=== PATIENT | female | born 1960 | race Caucasian/White ===

== ENCOUNTER 2016-07-28 21:28 | Emergency (ER) | payer OTHER ==
[~2016-07-28] VITALS: Ht 165.1 cm; Wt 108.0 kg
[2016-07-28 21:37] VITALS: BP 148/67; PULSE 90; RESP 18; TEMP 98.9; O2SAT 99
[2016-07-28] MEDS ORDERED: ONDANSETRON ODT 4 MG TAB PO ONE (21:45)
[2016-07-28] MEDS ORDERED: ACETAMINOPHEN/HYDROcodone 325 MG/5 MG TAB PO ONE (21:45)
--- NOTE | 2016-07-28 21:48 | PD ---
HPI Chief Complaint: Fall Time Seen by Provider: 21:35 Travel History International Travel<30 days: No Contact w/Intl Traveler<30days: No Traveled to known affect area: No History of Present Illness HPI This is a 55-year-old female who presents via EMS for evaluation of left ankle injury. Prior to arrival the patient was playing hockey when she twisted her left leg and fell. She now is complaining of pain in the left ankle region. Pain is an aching pain is constant and worse with movement. She has been unable to ambulate since the injury. She denies any pain or injury to the head , neck, back, torso, upper extremities, right leg, left proximal leg. No numbness or tingling. She has no other complaints at this time. She is currently visiting [facility] from [place]. [facility] Past Medical History High Cholesterol: Yes ?: Not Past Surgical History Surgical History: No Previous Surgery Social History Alcohol Use: No Tobacco Use: No Substance Use: No Allergies-Medications (Allergen,Severity, Reaction): Coded Allergies: Codeine (Verified Allergy, Unknown, 07/28/16) Phenergan (Verified Allergy, Unknown, 07/28/16) Reported Meds & Prescriptions Reported Meds & Active Scripts Active Zofran (Ondansetron HCl) 4 Mg Tab 4 Mg PO Q6HR PRN Lortab (Hydrocodone-Acetaminophen) 5-325 Mg Tab 1 Tab PO Q6H PRN Review of Systems Except as stated in HPI: all other systems reviewed are Neg Physical Exam Narrative GENERAL: Well-developed well-nourished female in no acute distress SKIN: Warm and dry. HEAD: Atraumatic. Normocephalic. EYES: Pupils equal and round. No scleral icterus. No injection or drainage. CARDIOVASCULAR: Regular rate and rhythm. No murmur appreciated. RESPIRATORY: No accessory muscle use. Clear to auscultation. Breath sounds equal bilaterally. GASTROINTESTINAL: Abdomen soft, non-tender, nondistended. MUSCULOSKELETAL: No obvious deformities. There is tenderness to palpation along the lateral and anterior left ankle joint. There is no tenderness to palpation to the medial left ankle joint. There is no tenderness to palpation to the hips, thighs, knees, calves. The Achilles tendon is intact with a negative Woodruff's test. 2+ dorsalis pedis and posterior tibial pulses. NEUROLOGICAL: Awake and alert. No obvious cranial nerve deficits. Motor grossly within normal limits. Normal speech. Data Data Last Documented VS Vital Signs Date Time Temp Pulse Resp B/P Pulse Ox O2 Delivery O2 Flow Rate FiO2 07/28/16 21:37 98.9 90 18 148/67 99 Orders Ankle, Complete ([id number]) (07/28/16 ) Ice/Cold Pack (07/28/16 21:36) Acetamin-Hydrocod 325-5 Mg ([place] 5-325 (07/28/16 21:45) Ondansetron Odt (Zofran Odt) (07/28/16 21:45) Foot, Limited (2vws) (07/28/16 ) Tibia/Fibula (Ap/Lat) (07/28/16 ) Knee, Complete (4vws) (07/28/16 ) Radiology Film Requests (07/29/16 ) Splint Or Brace Apply/Monitor (07/29/16 00:12) Crutches (07/29/16 00:12) Radiology Film Requests (07/29/16 ) MDM Medical Decision Making Medical Screen Exam Complete: Yes Emergency Medical Condition: Yes Medical Record Reviewed: Yes Interpretation(s) X-ray imaging reveals spiral fracture of the distal tibia Differential Diagnosis Lateral ankle sprain, avulsion fracture, fibular fracture, contusion Narrative Course 55-year-old female who fell while playing hockey prior to arrival. X-ray imaging reveals a spiral fracture of the distal tibia, closed. Distal pulses and sensation preserved. Orthopedic surgeon on-call will be consulted. Discussed with Dr. Islas he was okay with the patient following up in [place] in the next week. Recommend Evans splint, nonweightbearing. The patient is being discharged with her x-ray imaging on a CD, radiology reads. Diagnosis Primary Impression: Left tibial fracture Qualified Code: S82.245A - Closed nondisplaced spiral fracture of shaft of left tibia, initial encounter Referrals: Orthopedist Additional Instructions: Nonweightbearing. Medication as needed. Elevate. Follow-up with orthopedist in the next week. Return for any emergent medical conditions. Med/Other Pt SpecificInfo: Prescription(s) given, Orthopedic Instructions Scripts Ondansetron (Zofran)4 Mg Tab4 Mg PO Q6HR PRN (NAUSEA OR VOMITING) #20 TAB Ref 0 Prov:Britany Mitchell MD 07/29/16 Hydrocodone-Acetaminophen (Lortab)5-325 Mg Tab1 Tab PO Q6H PRN (PAIN) #20 TAB Ref 0 Prov:Britany Mitchell MD 07/29/16 Disposition: 01 DISCHARGE HOME Condition: Stable Rizwan Shah Jul 28, 2016 21:48
--- NOTE | 2016-07-28 22:19 | RADRPT ---
EXAM DATE/TIME: 07/28/2016 21:56 [facility] COMPARISON: ANKLE LEFT COMPLETE ([id number]), July 28, 2016, 21:53. INDICATIONS : Patient was playing hockey and had another player roll up on her left foot/ankle area. Patient compla ins of left ankle pain. MEDICAL HISTORY : None. SURGICAL HISTORY : None. ENCOUNTER: Initial ACUITY: 1 day PAIN SCORE: 9/10 LOCATION: Left Foot FINDINGS: Two view examination of the left foot demonstrates no soft tissue swelling, dislocation, or fracture. The calcaneus is intact. Bony mineralization is normal. Soft tissue swelling overlying the lateral ankle lateral malleolus. Spiral type fracture of the distal tibia appreciated. CONCLUSION: Limited views of the foot reveal no definite acute bony injury. Fracture distal tibia appreciated with lateral soft tissue swelling. Second third and fourth metatarsal tarsal articulatio n is suboptimally visualized Daren Garvin MD on July 28, 2016 at 22:16 Board Certified Radiologist. This report was verified electronically.
--- NOTE | 2016-07-28 22:25 | RADRPT ---
EXAM DATE/TIME: 07/28/2016 21:53 [facility] COMPARISON: No previous studies available for comparison. INDICATIONS : Patient was playing hockey and had patient roll up on her left ankle. Left ankle pain. MEDICAL HISTORY : None. SURGICAL HISTORY : None. ENCOUNTER: Initial ACUITY: 1 day PAIN SCORE: 9/10 LOCATION: Left Ankle FINDINGS: There is a spiral oblique fracture of distal one third of the tibia without displacement of fragments or angulation. Ankle mortise is intact. Soft tissue swelling is noted laterally. CONCLUSION: Nondisplaced or angulation spiral oblique fracture of the distal tibia. Soft tissue swelling lateral ankle. Ankle mortise intact Daren Garvin MD on July 28, 2016 at 22:23 Board Certified Radiologist. This report was verified electronically.
--- NOTE | 2016-07-28 23:50 | RADRPT ---
EXAM DATE/TIME: 07/28/2016 23:07 [facility] COMPARISON: No previous studies available for comparison. INDICATIONS : Left knee pain from fall. MEDICAL HISTORY : None. SURGICAL HISTORY : None. ENCOUNTER: Initial ACUITY: 1 day PAIN SCORE: 110 LOCATION: Bilateral anterior Knee FINDINGS: Four view examination of the left knee demonstrates no evidence of fracture or dislocation. Bony min eralization is normal. The articular surfaces are intact. The suprapatellar soft tissues have a nor mal configuration. No radiopaque foreign bodies. CONCLUSION: No evidence of recent bone injury. Liam Dueñas MD on July 28, 2016 at 23:48 Board Certified Radiologist. This report was verified electronically.
--- NOTE | 2016-07-28 23:52 | RADRPT ---
EXAM DATE/TIME: 07/28/2016 23:14 [facility] COMPARISON: No previous studies available for comparison. INDICATIONS : Lower left leg pain. MEDICAL HISTORY : None. SURGICAL HISTORY : None. ENCOUNTER: Initial ACUITY: 1 day PAIN SCORE: 10/10 LOCATION: Bilateral lower leg. FINDINGS: There is a spiral fracture of the distal diametaphyseal region of the tibia with less than 2 mm separ ation of the proximal line. Possible comminution. No angulation. The fibula appears intact. There is a large retrocalcaneal osteophyte. CONCLUSION: Non-angulated spiral fracture of the distal tibia. Liam Dueñas MD on July 28, 2016 at 23:49 Board Certified Radiologist. This report was verified electronically.
[2016-07-29] MEDS ORDERED: HYDR-3533 PO (00:16)
[2016-07-29] MEDS ORDERED: ZOFR4TAB PO (00:16)
== END 2016-07-29 01:15 | disposition home or self-care (01) ==
LOC: NEPB 21:28
DX: S82.245A Nondisplaced spiral fracture of shaft of left tibia, initial encounter for closed fracture (principal); E78.00 Pure hypercholesterolemia, unspecified; X50.1XXA Overexertion from prolonged static or awkward postures, initial encounter; Y93.65 Activity, lacrosse and field hockey; Y92.9 Unspecified place or not applicable; Y99.8 Other external cause status
CPT/HCPCS: 29515; 73564; 73590; 73610; 73620; 99284; E0113